=== PATIENT | female | born 1930 | race Caucasian/White ===

== ENCOUNTER 2016-11-08 07:58 | Outpatient (RCR) | payer OTHER ==
[~2016-11-08 07:58] MED LIST: ATIVAN0.5 MG ORAL; FORTICAL3.7 ML; METFORMIN HCL500 M1 ORAL; PANTOPRAZOLE SO40 MG ORAL; PEPCID40 MG ORAL; SINEMET CR 50-1 EACH ORAL; XALATAN2.5 ML BOTH EYES
== END 2016-12-05 | disposition home or self-care (01) ==
LOC: ECT 07:58
DX: F33.2 Major depressive disorder, recurrent severe without psychotic features (principal); G20 Parkinson's disease